=== PATIENT | female | born 1930 | race Caucasian/White ===

== ENCOUNTER → 2016-07-24 | Outpatient (CLI) | payer MEDICARE, BC ==
[~2016-07-24] MED LIST: ACET325T10 PO; ACID1TAB4 PO; ATOR10TA20 PO; BENZ200C36 PO; BISA10SU65 RC; CARV25TA28 PO; CEPH500C2 PO; DICL100G5 TOP; DOCU-118 PO; ESCI10TA47 PO; FURO40TA5 PO; FURO80TA3 PO; HYDR-4072 PO; INSU100V12 SQ; INSU100V13 SQ; LEVO75TA43 PO; LORA0.5T86 PO; MAGN-49 PO; MORP30TA95 PO; MORP60TA45 PO; NIAC500T68 PO; NITR0.4T SL; NYST50002; OMEP20CA10 PO; ONDA-55 PO; POLY255P2 PO; PROC5TAB PO; RAME8TAB17 PO; SENN-29 PO; TRAM50TA4 PO; [UNRECOGNIZED DRUG - CODE] PO; [UNRECOGNIZED DRUG - OTHER] TOP
== END ==
LOC: NWCC 09:45
PROVIDERS: ATTEND Internal Medicine
DX: E10.621 Type 1 diabetes mellitus with foot ulcer (principal); L97.511 Non-pressure chronic ulcer of other part of right foot limited to breakdown of skin; S81.802A Unspecified open wound, left lower leg, initial encounter; T24.031A Burn of unspecified degree of right lower leg, initial encounter; X11.8XXS Contact with other hot tap-water, sequela; I50.9 Heart failure, unspecified; I49.9 Cardiac arrhythmia, unspecified; E66.9 Obesity, unspecified; Z68.35 Body mass index [BMI] 35.0-35.9, adult; E03.9 Hypothyroidism, unspecified; M19.90 Unspecified osteoarthritis, unspecified site; F32.9 Major depressive disorder, single episode, unspecified; L53.9 Erythematous condition, unspecified; R60.1 Generalized edema; B96.89 Other specified bacterial agents as the cause of diseases classified elsewhere; M86.141 Other acute osteomyelitis, right hand
CPT/HCPCS: 11042; 87070; 87075; 87147; 87186; 87205; A6021; A6209; A6212; G0463

== ENCOUNTER → 2016-07-30 | Outpatient (CLI) | payer MEDICARE, BC ==
[~2016-07-30] MED LIST changes: +GADOBUTROL 10mMol/10ml INJECTION IV ONE; +SALINE FLUSH 10ml SYRINGE ONE
--- NOTE | 2016-07-30 15:15 | DI ---
Indication: ITS.REASON: E10.621, L97.511 EVALUATE FOR OSTEOMYELITIS wound on the right fourth toe, evaluate for osteomyelitis PROCEDURE: MRI FOOT RIGHT W/WO CONTRAST: Encounter: Initial Comparison: None Technique: Multiplanar multisequence MR imaging of the right foot was performed with and without contrast. Contrast: 10 mL Gadavist Findings: There is abnormal T1 hypointensity and T2 hyperintensity involving the distal aspect of the fourth toe proximal phalanx and proximal aspect of the middle phalanx. This area shows expected post contrast enhancement. There is also periosteal thickening present. The remaining bone marrow signal intensity is normal. Prior partial resection of the fifth toe proximal phalanx. There is subcutaneous edema and intrinsic T2 hyperintensity within the foot musculature, a common finding in diabetics. No focal fluid collection or abscess identified. There is loss of fat suppression within the area of the toes. Impression: Findings consistent with osteomyelitis of the fourth toe proximal and middle phalanges. .
== END ==
LOC: IMA 12:17
PROVIDERS: ATTEND Internal Medicine
DX: E10.621 Type 1 diabetes mellitus with foot ulcer (principal); R93.7 Abnormal findings on diagnostic imaging of other parts of musculoskeletal system; L97.511 Non-pressure chronic ulcer of other part of right foot limited to breakdown of skin
CPT/HCPCS: 73720; A9585

== ENCOUNTER → 2016-08-01 | Outpatient (CLI) | payer MEDICARE, BC ==
[~2016-08-01] MED LIST changes: +CALMOSEPTINE OINTMENT 3.5 G PACKET TOP ONE; -GADOBUTROL 10mMol/10ml INJECTION IV ONE; +SALINE FLUSH 10ml SYRINGE IVF ONE; -SALINE FLUSH 10ml SYRINGE ONE
== END ==
LOC: NWCC 09:40
PROVIDERS: ATTEND Internal Medicine
DX: E10.621 Type 1 diabetes mellitus with foot ulcer (principal); L97.512 Non-pressure chronic ulcer of other part of right foot with fat layer exposed; S91.101A Unspecified open wound of right great toe without damage to nail, initial encounter; S81.802A Unspecified open wound, left lower leg, initial encounter; V00-Y99 External causes of morbidity; M86.171 Other acute osteomyelitis, right ankle and foot
CPT/HCPCS: 11042; A6021; A6209; A6212; A9270; G0463

== ENCOUNTER → 2016-08-07 | Outpatient (CLI) | payer MEDICARE, BC ==
[~2016-08-07] MED LIST changes: -CALMOSEPTINE OINTMENT 3.5 G PACKET TOP ONE; -SALINE FLUSH 10ml SYRINGE IVF ONE
--- NOTE | 2016-08-07 17:37 | WOUNDPNF ---
DATE August 07, 2016 CHIEF COMPLAINT Right fourth toe osteomyelitis, diabetic foot ulcer. HISTORY OF PRESENT ILLNESS Mrs. Chacon is a very kind 85-year-old female who is well known to me from previous orthopedic issues as well as previous ulcerations. She has been treated here in the wound clinic over the last couple of weeks for an ulceration over the PIP joint of the fourth toe. MRI does suggest osteomyelitis of the proximal and middle phalanx of the fourth toe. She has other bones that are healing with conservative treatment. This ulcer was first noticed about three weeks ago. It is non-painful. They have been treating it with Hydrofera Blue and Mepilex. REVIEW OF SYSTEMS Negative for chest pain, shortness of breath, fevers, chills, nausea, vomiting, diarrhea or constipation. PAST MEDICAL HISTORY, PAST SURGICAL HISTORY, MEDICATIONS, ALLERGIES, SOCIAL HISTORY, FAMILY HISTORY Reviewed by me and available in [facility] EMR. EXAM GENERAL: She is alert and oriented, in no acute distress. She is well nourished and well developed. She answers questions appropriately. RIGHT FOOT: There is Barbour grade 2 diabetic foot ulceration over the PIP joint of the fourth toe dorsally. It measures approximately 0.6 x 0.6 x 0.2. The base of the ulcer has red granulation tissue. The surrounding skin is intact. Capillary refill in her toes is brisk. OTHER INFORMATION I reviewed MRI results which suggest osteomyelitis of the proximal and middle phalanx of the fourth toe. ASSESSMENT Right foot fourth toe grade 2 diabetic foot ulcer with osteomyelitis. PLAN I reviewed the diagnosis with her and treatment options. She is also seeing Dr. Mariscal, Infectious Disease, today who is going to recommend IV antibiotics. Mrs. Chacon would like to try a course of a couple of weeks of IV antibiotics and local wound care and see if this will give the ulcer and toe a chance to heal. If it does not, I do think she will require an amputation at the base of the fourth toe. If her wound does not improve with this treatment plan I will have the wound clinic call me and I can again see Mrs. Chacon to discuss amputation. [facility]
--- NOTE | 2016-08-07 18:31 | WOUNDCONF ---
August 07, 2016 CHIEF COMPLAINT Infectious Disease consultation was requested by Dr. Parham for osteomyelitis of the right fourth toe. HISTORY OF PRESENT ILLNESS Ms. Chacon is an 85-year-old woman who reports that she has had a wound on her right fourth toe for about two weeks. She has been following with Dr. Parham for this wound. She underwent MRI of her right foot July 30 which showed changes consistent with osteomyelitis of the fourth toe proximal and middle phalanges. Wound culture from July 24 from the right fourth toe had many gram-positive cocci on the Gram stain and grew out methicillin-resistant Staph aureus which was susceptible to clindamycin, doxycycline, linezolid, tetracycline, Bactrim and vancomycin. The patient reports that she has had prior problems with MRSA. In fact, specifically reports that she had an MRSA abscess around her right hip. She has had multiple surgeries on her right hip and on review of her records, looking at cultures that date back to 2008, the only cultures I can find from the right hip are from 2010 and they grew Staph epidermitis. She is referred for antibiotic recommendations. She was started on doxycycline 100 mg p.o. b.i.d. for 14 days on July 29. PAST MEDICAL HISTORY Type 2 diabetes mellitus, insulin-requiring. Coronary artery disease. Aortic valve stenosis. Mitral regurgitation. Records indicate that she in the past was offered CABG and mitral valve surgery and she declined. History of congestive heart failure. Osteoarthritis. Depression. Hypercholesterolemia. Hypertension. Hypothyroidism. Her hospital records indicate that she has a history of C. diff but when I asked her about that she denies it. PAST SURGICAL HISTORY Hysterectomy. Coronary stents. Cataract surgery. Trochanteric femoral nailing of the left hip. Right total hip replacement with long femoral stem. Open reduction internal fixation right distal femoral fracture. Status post amputation of the distal tip of her left middle finger for osteomyelitis per records. Cholecystectomy. SOCIAL HISTORY She lives at [facility]. She is a retired RN. No history of tobacco or alcohol use. FAMILY HISTORY Significant for cancer. ALLERGIES Allergies are numerous. She is unable to tell me her reactions specifically but according to the EMR amoxicillin caused severe shortness of breath. Vancomycin caused her to pass out. Gentamicin caused confusion and lethargy. Amitriptyline caused blurred vision. Clavulanic acid from Augmentin caused severe shortness of breath. Linezolid caused diarrhea, nausea and vomiting. Oxycodone caused mental cloudiness. Hydromorphone is also listed as an allergy. MEDICATIONS Reviewed. REVIEW OF SYSTEMS She denies any fevers, chills or sweats. She denies any nausea or vomiting. She denies any pain in her feet. She states she has neuropathy and cannot feel anything in her feet. The patient reports that she has sores in her mouth, around her lips and in her nose that occur about once a month which she believes are from MRSA. She denies any history of cold sores. The rest of the review of systems is negative other than that mentioned above. PHYSICAL EXAMINATION VITAL SIGNS: Her reported weight is 100 kg. GENERAL: She appears comfortable and is in no acute distress. HEENT: Pupils equal, round, reactive to light. Extraocular movements are intact. Oropharynx is clear. Dentition is fair. NECK: Supple. HEART: Regular rate and rhythm. She has a 2-3 out of 6 systolic ejection murmur. LUNGS: Clear to auscultation bilaterally anteriorly. ABDOMEN: Soft, nontender. She has bowel sounds present. No guarding or rebound. EXTREMITIES: No joint effusions are noted. No significant peripheral edema. Her right foot was evaluated and she has a wound on the dorsal aspect of her right fourth toe which appears relatively clean without any significant surrounding cellulitis. I am told that this wound does probe down to bone. She has palpable pedal pulses. Neuro: Exam is grossly nonfocal. PSYCHIATRIC: Her affect is appropriate. Her mood is somewhat irritable. SKIN: No rashes. IMPRESSION 1. Chronic osteomyelitis of the right fourth toe associated with a diabetic foot ulcer, wound culture from July 24, 2016 with methicillin-resistant Staph aureus. 2. Diabetes mellitus type 2, insulin-requiring. 3. Hypothyroidism. 4. Congestive heart failure. 5. Coronary artery disease status post coronary stenting. 6. History of aortic stenosis and mitral regurgitation. 7. Status post right total hip arthroplasty as well as repair of periprosthetic fracture. 8. Status post distal left middle finger amputation for chronic osteomyelitis. 9. History of Clostridium difficile per records, patient denies. 10. Multiple allergies and intolerances of antibiotics. 11. Diabetic neuropathy. RECOMMENDATIONS The patient spoke with Dr. Vance about surgical options of her ulcer on her toe. He discussed the possibility of amputation with her. She and Dr. Vance decided that she wanted to try IV antibiotics for about two weeks and then if this process is not improving, possibly consider amputation at that point. I will order a PICC line for IV antibiotics. Since she apparently passed out when vancomycin was being infused I will give her daptomycin 6 mg/kg IV daily. I will check a CBC, BMP, CRP and CPK weekly while she is on that. Also, with regard to her concern about recurrent sores in her mouth, lips and nose caused by MRSA, I discussed with her that when she has an outbreak I would recommend trying to send fluid from those lesions off to make a diagnosis. 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 I would recommend trying to send fluid from one of these lesions for an HSV PCR test but also because the patient is concerned about MRSA I would recommend a wound culture, looking for MRSA as well. I will plan to see her back in a couple of weeks. Thank you for allowing me to participate in the care of this patient. ELIZABETH
== END ==
LOC: NWCC 10:04
PROVIDERS: ATTEND Internal Medicine
DX: L97.511 Non-pressure chronic ulcer of other part of right foot limited to breakdown of skin (principal); S91.101A Unspecified open wound of right great toe without damage to nail, initial encounter; S81.802A Unspecified open wound, left lower leg, initial encounter; M86.171 Other acute osteomyelitis, right ankle and foot; X11.8XXS Contact with other hot tap-water, sequela; I10 Essential (primary) hypertension; I50.9 Heart failure, unspecified; I25.10 Atherosclerotic heart disease of native coronary artery without angina pectoris; E11.40 Type 2 diabetes mellitus with diabetic neuropathy, unspecified; Z79.4 Long term (current) use of insulin
CPT/HCPCS: 11042; A6209; G0463

== ENCOUNTER → 2016-08-09 | Outpatient (CLI) | payer MEDICARE, BC ==
--- NOTE | 2016-08-09 12:59 | DI ---
Indication:ITS.REASON: M86.141 OSTEO;E10.621 DIABETES, TYPE 1; L97.54 DIABETIC FT ULCER Procedure:PICC LINE INSERTION w FLUORO PICC LINE INSERTION: After discussing the details of the procedure, including risks, the patient wished to proceed. Informed consent was obtained. A preprocedural timeout was performed to confirm the correct patient and procedure. Sterile technique, local Xylocaine anesthesia, and sonographic guidance was used to access the left basilic vein. A .018 guidewire was advanced into the vein. Then using fluoroscopic guidance, a single lumen 4 Fr PICC line was advanced with the tip placed within the SVC. Catheter length is 44 cm. A fluoroscopic image was then taken and archived. I was able to aspirate blood and inject freely through the port. The procedure was completed without complication. Following this, the patient left the imaging department in stable condition. Impression:Successful left-sided PICC line placement with the tip residing near the cavoatrial junction. Fluoroscopy dose: 20.80 mGy (Cumulative air kerma) Andres Lanza RPA/JENY performed this under my personal supervision. .
== END ==
LOC: IMA 08:49
PROVIDERS: ATTEND Internal Medicine Infectious Disease
DX: M86.8X7 Other osteomyelitis, ankle and foot (principal); E10.621 Type 1 diabetes mellitus with foot ulcer
CPT/HCPCS: 36569; 77001; C1894